=== PATIENT | male | born 1945 ===

== ENCOUNTER 2020-10-08 06:25 | Day surgery (SDC) | payer OTHER ==
[~2020-10-08 06:25] MED LIST: COZAAR100 MG PO; DOXA PO; ECOTRIN81 MG PO; LIPITOR40 M1 PO; ZYLOPRIM100 M1 PO
== END 2020-10-08 13:40 | disposition home or self-care (01) ==
LOC: CIR.AMB 06:25
PROVIDERS: ATTEND Colon & Rectal Surgery
DX: D12.8 Benign neoplasm of rectum (principal); Z20.822 Contact with and (suspected) exposure to COVID-19

== ENCOUNTER 2021-03-06 05:57 | Day surgery (SDC) | payer OTHER | END 2021-03-06 10:30 | disposition home or self-care (01) | LOC: AMB-ENDOS 05:57 | PROVIDERS: ATTEND Colon & Rectal Surgery | DX: D12.0 Benign neoplasm of cecum (principal); K64.0 First degree hemorrhoids; Z20.822 Contact with and (suspected) exposure to COVID-19 ==